=== PATIENT | male | born 1945 ===

== ENCOUNTER 2017-03-31 11:20 | Day surgery (SDC) | payer MEDICARE ==
[2017-03-28 10:37] VITALS: BMI 28.3
[2017-03-31] MEDS ORDERED: Lactated Ringer's 1,000 ML IV ONE ×2 (13:00)
[2017-03-31] MEDS: cefTRIAXone IV 1 gm in Dextros 50 ML IVPB ONE ×2 (13:05→15:05)
[2017-03-31] MEDS ORDERED: Iohexol 240 (50 ml) ONE (14:11)
[2017-03-31] MEDS ORDERED: HYDROmorphone 0.5 mg/0.5 ml ISec IVP PRN (14:52)
[2017-03-31] MEDS ORDERED: Midazolam 2 MG/2 ML VIAL ONE (15:01)
[2017-03-31] MEDS ORDERED: Propofol 10 mg/ml Inj (20 ML) ONE (15:02)
[2017-03-31] MEDS ORDERED: ePHEDrine 50 mg/ml Inj ONE (15:15)
[2017-03-31] MEDS ORDERED: Acetaminophen-Codeine 300/30 mg Tab PO PRN (15:35)
[2017-03-31 16:28] VITALS: BP 124/78; PULSE 61; RESP 10; TEMP 97.9
[2017-03-31 17:20] VITALS: O2SAT 100
--- NOTE | 2017-04-01 09:27 | RAD ---
PROCEDURE: HISTORY: HEMATURIA COMPARISON: 01/23/2015 TECHNIQUE: Retrograde study performed by Dr. Robby Kearns FINDINGS: Academic Tutor - left hemipelvic calcification and more central probable prostatic calcifications. L 5-S1 facet arthrosis. Left femoral head bone island versus loose body. Bilateral hip joint osteoarthrosis Image labeled 2. -cystoscope over bladder ; left ureter normal in caliber. The prior filling defects in the short segment of the proximal left ureter are no longer present. Currently no filling defects in the left collecting system are noted. The right pelvocaliceal system and left pelvocaliceal systems appear to thin normal limits the left minor calyces of top-normal in their morphology/capacity the right ureter is incompletely opacified - of the portions visualized (mainly than the distal segment, no filling defects or abnormal caliber changes suggested Contrast in the bladder and moderately distended is unremarkable there is some extrinsic compression likely at the bladder base from the prostate. IMPRESSION: No filling defects visualized on this exam -portions opacified. Please refer to the operative report by Dr. Kearns
--- NOTE | 2017-04-08 07:49 | OP ---
PROCEDURE DATE: 03/31/2017 PREOPERATIVE DIAGNOSES: Urinary retention, voiding dysfunction, elevated PSA. POSTOPERATIVE DIAGNOSES: Urinary retention, voiding dysfunction, elevated PSA. PROCEDURE: Cystoscopy, retrograde pyelogram. COMPLICATIONS: None. BIOPSIES: None. INDICATIONS: See history and physical for the ____. ____ gentleman here for the above procedure. FINDINGS: Our findings today are visually occlusive prostate at 3 cm. There are no bladder tumors o r cancers. The patient looks like he has had some kind of procedure before. He is not wide open, he is visually occlusive. It does not look all like trilobar cantwell hypertrophy. PROCEDURE: After obtaining informed consent, the patient placed on the table, routine monitors place d, timeouts were called to confirm patient. The patient refused biopsies of the prostate. Discussed it. ____ transrectal ultrasound. We began our procedure. The biopsies ____. Cystoscope via the urethra. ____ is normal, no ____. The ____ is visually occlusive. ____ the retrograde pyelogram. Films are submitted. The procedure continues. No abnormalities are detected. ____ rectal exam shows a 30 gram prostate. The patient should be able to tolerate a PVP GreenLight laser TURP. I will need to discuss those opt ions with the patient further in the office. Robby Kearns MD cc: [id number] TT: 04/07/2017 15:29:26 sn
== END 2017-03-31 17:24 | disposition home or self-care (01) ==
LOC: C.SDS 11:20
PROVIDERS: ATTEND Urology
DX: R31.29 Other microscopic hematuria (principal); R35.1 Nocturia
CPT/HCPCS: 52005; 74420; J0696; J1170; J7120

== ENCOUNTER 2017-04-07 09:18 | Day surgery (SDC) | payer MEDICARE ==
[2017-04-07 10:07] VITALS: BMI 27.3
[2017-04-07] MEDS ORDERED: Lactated Ringer's 1,000 ML IV ONE ×2 (13:23)
[2017-04-07] MEDS: cefTRIAXone IV 1 gm in Dextros 50 ML IVPB ONE ×2 (13:27→13:35)
[2017-04-07] MEDS ORDERED: Propofol 10 mg/ml Inj (20 ML) ONE (13:30)
[2017-04-07] MEDS ORDERED: Midazolam 2 MG/2 ML VIAL ONE (13:30)
[2017-04-07] MEDS ORDERED: HYDROmorphone 0.5 mg/0.5 ml ISec IVP PRN (14:10)
[2017-04-07] MEDS ORDERED: HYDROmorphone 0.5 mg/0.5 ml ISec IVP ONE (15:05)
[2017-04-07 16:48] VITALS: BP 136/79; PULSE 60; RESP 18; TEMP 96.7; O2SAT 100
--- NOTE | 2017-04-07 17:27 | OP ---
PROCEDURE DATE: 04/07/2017 PREOPERATIVE DIAGNOSES: Urinary retention, elevated PSA, voiding dysfunction, decreased flow of stre am, nocturia. POSTOPERATIVE DIAGNOSES: Urinary retention, elevated PSA, voiding dysfunction, decreased flow of str eam, nocturia. PROCEDURE: PVP GreenLight laser TURP. SURGEON: Robby Kearns MD BLOOD LOSS: Less than 25 mL. COMPLICATIONS: There were no complications. DRAIN: Hector catheter, 20 [place], with 50 mL in the balloon with a mild traction. FINDINGS: 1. Normal anterior urethra, no strictures of the veru. 2. There was visually occlusive, very occlusive, prostate, about 3 cm in length. 3. The ureteral orifices were all grossly intact before and after the procedure and there was no brook ss bleeding. At the termination of the procedure, the patient is nicely wide open. I have pictures towards the end of the procedure and then I did a little more resecting. I did a lit tle more laser just on the roof to make it a little more open. There were no complications. INDICATIONS: See history and physical. This is a very pleasant gentleman, elevated PSA. Has had a previous prostate biopsy. He has had a few of them actually; some by me, some by others. But he refuses to get any more. With elevated PSA, significantly elevated, but he does not want any more biopsies. We discussed options. He is in retention, voiding dysfunction, incomplete bladder, d ecreased force of stream, obstructive and irritative complaints, and he is here now for the above pro cedure. We discussed risks, benefits, alternatives, specifically retrograde ejaculation. We discuss ed bladder neck contracture. We discussed the surgery not working. After discussing all those options, he is now for procedure. PROCEDURE: After obtaining informed consent, with the patient on table, routine monitors placed, nidhi eouts were called to confirm the patient and positioning. The patient was given antibiotic prophylax is, scope via the urethra, we used the visual obturator. We now identified our landmarks and the cinda u was visually clear, about 3 cm in length. We identified the ureteral orifice. There are no bladde r cancers, moderately trabeculated. We now converted over to the port. We used a GreenLight laser for it. We started initial power of 80, worked our way up to 120. Then, subsequently, actually, towards the end we went up to 180. Throughout the procedure, we kept checking our landmarks where we were. We opened up the prostate wi lashonda, nice sweeping motions back and forth, back and forth. We started between 5 and [address] our way 7 and 11, and then 5 to 1. And, just worked our way towards the veru. At termination the veru is nicely grossly intact and the prostate is wide open. At end of patient's op, we turned off all the water, made sure there was no bleeding, put in a Hector catheter via the urethra, 50 mL, with moderate traction. The patient tolerated without complication. Robby Kearns MD cc: [id number] TT: 04/07/2017 17:26:44 dn
--- NOTE | 2017-04-08 07:47 | HP ---
Please see previously dictated note from 03/31/2017. The patient is here today for ____. A very pleasant gentleman, voiding dysfunction, decreased flow of stream, nocturia, urinary retention . He is here now for a PVP GreenLight laser TURP. Last week, we did a cysto. He has refused a prostate biopsy. Cysto last week just showed a visually occlusive prostate. He wanted it in the hospital. We discuss ed various options and he is here today now for a ____. We discussed other options, minimally invasi ve therapy. We discussed no treatment. We discussed medical therapy. Discussing those options, he is here now. PAST MEDICAL AND SURGICAL HISTORY: No change since last week. See the chart. Allergies. MEDICATIONS: See chart. PHYSICAL EXAMINATION: GENERAL: Well-nourished male, in no apparent distress. VITAL SIGNS: Within normal limits. ABDOMEN: Overall soft. ____. No flank mass appreciated. Normal bowel sounds. ____ no testicular masses. RECTAL: A 30-50 gram prostate, soft and smooth. No nodules. LABORATORIES: See chart. DIAGNOSES: Elevated PSA, voiding dysfunction, decreased flow of stream, irritative and obstructive c omplaints. PLAN: We discussed options with the patient. After discussing all those options with the patient, we would consider prostate biopsy to be the next appropriate step. The patient refused a prostate biopsy. He had enough before is what he said. I explained to him my concerns for cancer. I discussed with him those options though. He is here now for ____. We discussed the risks, benefit s ____ surgery not working. We discussed retrograde ejaculation. We discussed various options. Aft er discussing all those options, the patient is here now and we will plan for the followin. Antibiotic prophylaxis. 2. TURP and then ____. Robby Kearns MD cc: [id number] TT: 04/07/2017 15:17:10
== END 2017-04-07 16:15 | disposition home or self-care (01) ==
LOC: C.SDS 09:18
PROVIDERS: ATTEND Urology
DX: N40.1 Benign prostatic hyperplasia with lower urinary tract symptoms (principal); R33.8 Other retention of urine; R35.1 Nocturia; R97.20 Elevated prostate specific antigen [PSA]
CPT/HCPCS: 52648; A4358; C1887; J0696; J1170; J7120

== ENCOUNTER 2017-11-14 06:30 | Day surgery (SDC) | payer MEDICARE ==
[2017-11-14] MEDS ORDERED: Lidocaine 2% Jelly (Uro-Jet) ONE (07:44)
[2017-11-14] MEDS ORDERED: cefTRIAXone IV 1 gm in Dextros 50 ML IVPB ONE (07:44)
[2017-11-14] MEDS ORDERED: Lactated Ringer's 1,000 ML IV ONE (08:17)
[2017-11-14] MEDS ORDERED: Propofol 10 mg/ml Inj (20 ML) ONE ×2 (08:23→08:31)
[2017-11-14] MEDS ORDERED: Iohexol 240 200 ML ONE (08:32)
[2017-11-14] MEDS ORDERED: Iohexol 240 (50 ml) ONE (08:32)
[2017-11-14 10:11] VITALS: BP 115/74; PULSE 57; RESP 17; TEMP 97.2; O2SAT 98
--- NOTE | 2017-12-30 14:34 | OP ---
PROCEDURE DATE: PREOPERATIVE DIAGNOSIS: Voiding dysfunction, decreased force of stream, rule out bladder neck contracture.. POSTOPERATIVE DIAGNOSIS: Voiding dysfunction, decreased force of stream and no evidence of bladder neck contracture. PROCEDURE: Cystoscopy only. ESTIMATED BLOOD LOSS: Less than 10 mL COMPLICATIONS: There were no complications. DRAINS: None. FINDINGS: The anterior urethra was normal, no strictures, on viewing it is fairly reasonably open, it is not perfectly as wide open as sometimes it would be expected postop. There is no evidence of bladder neck contracture and the bladder itself is relatively normal in structure. There were no complications. INDICATIONS: See history and physical for further the details. A very pleasant gentleman who has voiding dysfunction, status post he has a history of previous TURP. We were expecting him to have bladder neck contracture from some of his symptoms. So we discussed options, the patient want to work up here and he is here now. (Just to make a note, the bladder neck is somewhat tight, but not needed, we were able to get the 22 scope and so we did not make any incision). DESCRIPTION OF PROCEDURE: After obtaining informed consent, the patient was placed on the operating table. Routine monitors were placed. Time-out was called to confirm the patient and positioning. The patient was given antibiotics. Time out was called to confirm the positioning. Cystoscope via urethra, we used the 21-German scope. Prepared for an IOU. But in fact, there was no stricture or bladder neck contracture, identified well. It is somewhat open, but not as open as in some other situation, but certainly open. At the bladder neck, again we were able to let the scope through without making any incision. The bladder was inspected, it did not show any bladder tumor or lot of lesions. So, at this point, we actually drained the bladder, we removed everything. The patient tolerated without complication. Robby Kearns MD
--- NOTE | 2017-12-30 15:56 | HP ---
UROLOGY ADMISSION HISTORY AND PHYSICAL REASON FOR ADMISSION: Treatment of kidney for voiding dysfunction. A very pleasant gentleman, previously had . He had voiding dysfunction, decreased flow of stream, what he is describing. He said he was voiding much stronger right not immediately, but about a month after surgery previously, and then this had slow down. He did not want to do a cystoscopy in the office, so we discussed options and he is here now for cysto possibly IOU. PAST MEDICAL AND SURGICAL HISTORY: No other changes. REVIEW OF SYSTEMS: Noncontributory. No weight loss, chest pain, or shortness of breath. MEDICATIONS: See chart. SOCIAL HISTORY: Essentially unremarkable. PHYSICAL EXAMINATION: GENERAL: In no apparent distress. VITAL SIGNS: Within normal limits, included in the chart. LUNGS: Clear. ABDOMEN: Soft, nontender. No flank mass was appreciated. GENITALIA: Normal phallus without discharge. No testicular masses. RECTAL: A 30 g prostate, soft and smooth. DIAGNOSES: Voiding dysfunction, possible bladder neck contracture. The plan is as follows. The patient received antibiotic prophylaxis. He will have a cystoscopy, and further plans, we will follow. We discussed risks, benefits, and treatment alternatives with the patient. Robby Kearns MD
== END 2017-11-14 10:27 | disposition home or self-care (01) ==
LOC: C.SDS 06:30
PROVIDERS: ATTEND Urology
DX: N31.8 Other neuromuscular dysfunction of bladder (principal); R31.0 Gross hematuria
CPT/HCPCS: 52000; J0696; J7120